=== PATIENT | female | born 1950 | race Caucasian/White ===

== ENCOUNTER 2016-11-18 21:15 | Inpatient (IN) | payer OTHER ==
[~2016-11-18] VITALS: Ht 160 cm; Wt 71.9 kg
[~2016-11-18 21:15] MED LIST: CALC500C70 PO; MILK1CAP9 PO; PRLSR20 PO; ZNTT/150 PO
[2016-11-18] MEDS ORDERED: AZITHROMYCIN 250 MG TAB PO ONE (22:00)
[2016-11-18] MEDS ORDERED: HYCODAN 60ML BOTTLE HOMEPACK PO ONE (22:00)
[2016-11-18] MEDS ORDERED: OXYCODONE IR HOME PACK PO ONE (22:00)
[2016-11-18] MEDS ORDERED: ONDANSETRON INJ 2 MG/ML 2 ML VIAL IV STA (22:14)
[2016-11-18] MEDS ORDERED: SODIUM CHLORIDE 0.9% 500ML 500 ML IV STA (22:14)
[2016-11-18] MEDS ORDERED: MoRPHine SULFATE 10 MG/ML CARP/VIAL IV STA (22:14)
[2016-11-18 22:28] LABS: BASO % 0.2 %; BASO ABS # 0.03 K/uL (0-0.2); COMPLETE YES; EOS % 0.7 %; HEMATOCRIT 42.7 % (37-47); IG% 0.3 %; LYMPH % 10.8 %; LYMPH ABS # 1.69 K/uL (1.2-3.4); MEAN CORPUSCULAR HEMOGLOBIN 30.1 pg (25-34); MEAN CORPUSCULAR HGB CONC 34.7 g/dl (32-36); MEAN PLATELET VOLUME 10.8 fL (7.4-10.4); MONO % 7.5 %; NEUT % 80.5 %; PLATELET COUNT 269 K/uL (130-400); RED BLOOD COUNT 4.91 M/uL (4.2-5.4)
--- NOTE | 2016-11-18 22:29 | DIAGNOSTIC IMAGING REPORT ---
CHEST ONE VIEW PORTABLE CLINICAL HISTORY: epigastric pain COMPARISON STUDY: No previous studies for comparison. FINDINGS: The heart is borderline enlarged. There is elevation of the interstitium. Clinical correlation in regards to congestive failure is recommended. There is no lobar consolidation. There are no significant pleural effusions.[ IMPRESSION: Elevation of the interstitium. Clinical correlation in regards to congestive failure is recommended. There is no lobar consolidation. Electronically signed by: Jason Cardona M.D. 11/18/2016 10:27 PM Dictated Date/Time: 11/18/2016 10:26 PM
[2016-11-18] MEDS ORDERED: OPTIRAY 320 IV PRN (22:30)
[2016-11-18 22:35] LABS: CREATININE 0.71 mg/dl (0.60-1.20); POTASSIUM 3.5 mmol/L (3.5-5.1)
--- NOTE | 2016-11-18 23:32 | EMERGENCY ROOM VISIT NOTE ---
ED Visit Note First contact with patient: 22:06 This Patient was discussed with the physician Administrative Staff Supervisor, Asha Dent PA-C. The pertinent historical and physical exam findings were confirmed. I agree with the studies ordered and with the interpretations of these studies. I agree with the disposition and care plan.
[2016-11-18] MEDS ORDERED: PIPERACILLIN/TAZOBACTAM 3.375 GM/100ML D5W IV STA (23:46)
[2016-11-19] VITALS (9 sets, daily range): BP systolic 97–185; BP diastolic 57–87; PULSE 58–74; TEMP 36.5–37.2; O2SAT 92–93; Ht 160 cm; Wt 71.9 kg
--- NOTE | 2016-11-19 00:13 | History and Physical ---
History & Physical Date & Time of Service: Nov 19, 2016 at 00:05 Chief Complaint: Chest Pain Primary Care Physician: Rosalina Chino M.D. History of Present Illness Source: patient pt is a 66 year old female who presents to Er for 1 day history of epigastric pain, some nausea, no vomiting, pt denies fever, no diarrhea, pt had EGD and colonoscopy done 2 months ago, which showed diverticulosis and hiatal hernia, Social History Smoking Status: Current Every Day Smoker Alcohol Use: occasionally Drug Use: none Multi-Drug Resistant Organisms History of MDRO: No Allergies Coded Allergies: Codeine (Verified Allergy, Unknown, SICK TO STOMACH, 09/02/16) Home Medications Scheduled Calcium/Vitamin D (Os-He 500 Plus D), 1 TAB PO QAM Milk Thistle (Silybum Marianum (Milk Thistle), 2 CAP PO QAM Omeprazole (Prilosec), 2 TAB PO QAM Ranitidine (Zantac), 150 MG PO BID Review of Systems Constitutional: No chills, No fatigue, No fever, No problem reported, No sweats , No weakness, No weight loss Eyes: No diplopia, No discharge, No eye pain, No problem reported, No redness, No worsening of vision ENT: No dental problems, No hearing loss, No nasal symptoms, No problem reported, No sore throat, No tinnitus, No trouble swallowing, No unusual epistaxis Respiratory: No cough, No dyspnea at rest, No dyspnea on exertion, No hemoptysis, No problem reported, No shortness of breath, No sputum, No wheezing Cardiovascular: No PND, No chest pain, No claudication, No edema, No orthopnea , No palpitations, No problem reported Abdomen: + nausea, + pain Musculoskeletal: No calf pain, No joint pain, No muscle pain, No problem reported, No swelling Neurologic: No balance problems, No memory loss, No numbness/tingling, No paralysis, No problem reported, No vertigo, No weakness Psychiatric: No anhedonism, No anxiety, No depression symptoms, No insomnia, No problem reported, No substance abuse Endocrine: No excessive thirst, No excessive urination, No fatigue, No problem reported Hematologic / Lymphatic: No abnormal bleeding/bruising, No clotting problems, No night sweats, No problem reported, No swollen lymph nodes Physical Exam Vital Signs Date Time Temp Pulse Resp B/P Pulse Ox O2 Delivery O2 Flow Rate FiO2 11/18/16 22:51 81 18 162/89 11/18/16 22:24 Room Air 11/18/16 21:42 36.7 63 18 183/84 95 Room Air 11/18/16 21:32 66 General Appearance: WD/WN Head: normocephalic Eyes: normal inspection ENT: normal ENT inspection Neck: supple, no JVD Respiratory/Chest: chest non-tender, lungs clear, normal breath sounds Cardiovascular: regular rate, rhythm, no edema, no gallop, no JVD Abdomen/GI: normal bowel sounds, soft, + tenderness (tenderness at RUQ , no rebound pain, ) Extremities/Musculoskelatal: normal inspection, no calf tenderness Diagnostics Laboratory Results Results Past 24 Hours Test 11/18/16 21:30 11/18/16 22:25 Range/Units White Blood Count 15.70 4.8-10.8 K/uL Red Blood Count 4.91 4.2-5.4 M/uL Hemoglobin 14.8 12.0-16.0 g/dL Hematocrit 42.7 37-47 % Mean Corpuscular Volume 87.0 80-100 fL Mean Corpuscular Hemoglobin 30.1 25-34 pg Mean Corpuscular Hemoglobin Concent 34.7 32-36 g/dl Platelet Count 269 130-400 K/uL Mean Platelet Volume 10.8 7.4-10.4 fL Neutrophils (%) (Auto) 80.5 % Lymphocytes (%) (Auto) 10.8 % Monocytes (%) (Auto) 7.5 % Eosinophils (%) (Auto) 0.7 % Basophils (%) (Auto) 0.2 % Neutrophils # (Auto) 12.66 1.4-6.5 K/uL Lymphocytes # (Auto) 1.69 1.2-3.4 K/uL Monocytes # (Auto) 1.17 0.11-0.59 K/uL Eosinophils # (Auto) 0.11 0-0.5 K/uL Basophils # (Auto) 0.03 0-0.2 K/uL RDW Standard Deviation 43.3 36.4-46.3 fL RDW Coefficient of Variation 13.6 11.5-14.5 % Immature Granulocyte % (Auto) 0.3 % Immature Granulocyte # (Auto) 0.04 0.00-0.02 K/uL Sodium Level 139 136-145 mmol/L Potassium Level 3.5 3.5-5.1 mmol/L Chloride Level 105 98-107 mmol/L Carbon Dioxide Level 22 21-32 mmol/L Anion Gap 12.0 3-11 mmol/L Blood Urea Nitrogen 12 7-18 mg/dl Creatinine 0.71 0.60-1.20 mg/dl Est Creatinine Clear Calc Drug Dose 72.1 ml/min Estimated GFR () 101.4 Estimated GFR (Non- 87.5 BUN/Creatinine Ratio 17.0 10-20 Random Glucose 94 70-99 mg/dl Calcium Level 10.0 8.5-10.1 mg/dl Total Bilirubin 0.4 0.2-1 mg/dl Aspartate Amino Transf (AST/SGOT) 23 15-37 U/L Alanine Aminotransferase (ALT/SGPT) 34 12-78 U/L Alkaline Phosphatase 111 45-117 U/L Pro-B-Type Natriuretic Peptide 111 0-900 pg/ml Total Protein 7.8 6.4-8.2 gm/dl Albumin 3.9 3.4-5.0 gm/dl Globulin 3.9 2.5-4.0 gm/dl Albumin/Globulin Ratio 1.0 0.9-2 Lipase 145 73-393 U/L Bedside Troponin I 0.000 0-0.045 ng/ml Diagnostic Radiology CT scan- gallstone and cholecystitis Impression Assessment and Plan IMP Acute cholecystitis, cholelithiasis Plan: admit to hospital. IV fluid antibiotic, control pain, U/S study gallbladder possible to do laparoscopic cholecystectomy, possible open or cholangiogram in 2 days, D/W benefits, risks, and alternatives of the procedure, the risks- infection, bleeding, injury CBD, bowel, HI, DVT, stroke, , pt understood, she agrees with the plan. I answered all questions, ASA Classification: ASA Class II Level of Care Med/Surg VTE Prophylaxis Given or contraindicated: SCD's
[2016-11-19] MEDS ORDERED: B-CO1CAP17 PO (00:14)
[2016-11-19] MEDS ORDERED: MoRPHine SULFATE 4 MG/ML 1 ML CARP\\VIAL IV STA (00:29)
--- NOTE | 2016-11-19 01:40 | EMERGENCY ROOM VISIT NOTE ---
History First contact with patient: 22:06 Chief Complaint: CHEST PAIN Stated Complaint: CHEST PAIN Nursing Triage Summary: Pt presents als for evaluation of chest pain/abdominal pain. Hx of diverticulitis/gerd. Off and on abdominal pain 3 days, increasing tonight. C/o nausea. History of Present Illness The patient is a 66 year old female who presents to the Emergency Room via ALS with complaints of abdominal pain which has been intermittent for the past 3 days but worsened in severity tonight. The patient reports that she has had a long history of intermittent abdominal pain and takes omeprazole and ranitidine at home for presumed GERD. She states that she had an EGD and colonoscopy 3 months ago which showed a hiatal hernia and diverticulosis. The patient reports that her symptoms seemed to be under control until approximately 3 days ago. She states that that time, she developed severe pain in her upper abdomen associated with nausea and decreased appetite. She took milk of magnesia and had several bowel movements and felt slightly better. She states she has had a few episodes of pain in the past 3 days. The patient reports that approximately 5 hours ago, the pain increased in severity and became constant. She reports abdominal bloating and epigastric pain. The pain radiates into her back. She rates her current discomfort a 7/10. The patient reports she is otherwise healthy. She denies any history of pancreatitis. She denies history of abdominal surgery. She denies chest pain, shortness of breath, changes in bowel movements, fevers or urinary symptoms. Review of Systems A complete 10-point Review of Systems was discussed with the patient, with pertinent positives and negatives listed in the History of Present Illness. All remaining Review of Systems questions can be considered negative unless otherwise specified. Past Medical/Surgical History Medical Problems: (1) Acute cholecystitis Social History Smoking Status: Current Every Day Smoker Drug Use: none Current/Historical Medications Scheduled Calcium/Vitamin D (Os-Eh 500 Plus D), 1 TAB PO QAM Milk Thistle (Silybum Marianum (Milk Thistle), 2 CAP PO QAM Omeprazole (Prilosec), 2 TAB PO QAM Ranitidine (Zantac), 150 MG PO BID Vitamin B Cmplx/Vitc/Folic Ac (Nephrocaps), 1 CAP PO DAILY Allergies Coded Allergies: Codeine (Verified Allergy, Unknown, SICK TO STOMACH, 11/19/16) Physical Exam Vital Signs Date Time Temp Pulse Resp B/P Pulse Ox O2 Delivery O2 Flow Rate FiO2 11/18/16 22:51 81 18 162/89 11/18/16 22:24 Room Air 11/18/16 21:42 36.7 63 18 183/84 95 Room Air 11/18/16 21:32 66 Physical Exam VITALS: Vitals are noted on the nurse's note and reviewed by myself. Vital signs stable. GENERAL: This is a 66-year-old female, in no acute distress, nondiaphoretic, well-developed well-nourished. SKIN: Capillary reflex less than 2 seconds. HEART: Regular rate and rhythm without murmurs gallops or rubs. LUNGS: Clear to auscultation bilaterally without wheezes, rales or rhonchi. ABDOMEN: Positive bowel sounds x 4. Soft, moderate tenderness over the epigastric region and right upper quadrant. Salcedo sign positive. No guarding or rebound tenderness. NEURO: Patient was alert and oriented to person place and time. Medical Decision & Procedures ER Provider Diagnostic Interpretation: CHEST ONE VIEW PORTABLE FINDINGS: The heart is borderline enlarged. There is elevation of the interstitium. Clinical correlation in regards to congestive failure is recommended. There is no lobar consolidation. There are no significant pleural effusions.[ IMPRESSION: Elevation of the interstitium. Clinical correlation in regards to congestive failure is recommended. There is no lobar consolidation. CT ABDOMEN & PELVIS: Gallbladder wall thickening and edema. Query small stone in the neck of the gallbladder or cystic duct. Findings suggest cholecystitis. Ultrasound/HIDA scan can further assess. Biliary ectasia. Colonic diverticula without diverticulitis. No evidence of appendicitis. Hysterectomy. Too small to characterize low attenuation focus in the right kidney. Cardiac medically. Basilar atelectasis/pneumonitis. Radiologist: Serenity Ramirez M.D. Laboratory Results 11/18/16 21:30 Red Blood Count 4.91, Mean Corpuscular Volume 87.0, Mean Corpuscular Hemoglobin 30.1, Mean Corpuscular Hemoglobin Concent 34.7, Mean Platelet Volume 10.8, Neutrophils (%) (Auto) 80.5, Lymphocytes (%) (Auto) 10.8, Monocytes (%) (Auto) 7.5, Eosinophils (%) (Auto) 0.7, Basophils (%) (Auto) 0.2, Neutrophils # (Auto) 12.66, Lymphocytes # (Auto) 1.69, Monocytes # (Auto) 1.17, Eosinophils # (Auto) 0.11, Basophils # (Auto) 0.03 11/18/16 21:30 Test 11/18/16 21:30 11/18/16 22:25 White Blood Count 15.70 K/uL (4.8-10.8) Red Blood Count 4.91 M/uL (4.2-5.4) Hemoglobin 14.8 g/dL (12.0-16.0) Hematocrit 42.7 % (37-47) Mean Corpuscular Volume 87.0 fL (80-100) Mean Corpuscular Hemoglobin 30.1 pg (25-34) Mean Corpuscular Hemoglobin Concent 34.7 g/dl (32-36) Platelet Count 269 K/uL (130-400) Mean Platelet Volume 10.8 fL (7.4-10.4) Neutrophils (%) (Auto) 80.5 % Lymphocytes (%) (Auto) 10.8 % Monocytes (%) (Auto) 7.5 % Eosinophils (%) (Auto) 0.7 % Basophils (%) (Auto) 0.2 % Neutrophils # (Auto) 12.66 K/uL (1.4-6.5) Lymphocytes # (Auto) 1.69 K/uL (1.2-3.4) Monocytes # (Auto) 1.17 K/uL (0.11-0.59) Eosinophils # (Auto) 0.11 K/uL (0-0.5) Basophils # (Auto) 0.03 K/uL (0-0.2) RDW Standard Deviation 43.3 fL (36.4-46.3) RDW Coefficient of Variation 13.6 % (11.5-14.5) Immature Granulocyte % (Auto) 0.3 % Immature Granulocyte # (Auto) 0.04 K/uL (0.00-0.02) Anion Gap 12.0 mmol/L (3-11) Est Creatinine Clear Calc Drug Dose 72.1 ml/min Estimated GFR () 101.4 Estimated GFR (Non- 87.5 BUN/Creatinine Ratio 17.0 (10-20) Calcium Level 10.0 mg/dl (8.5-10.1) Total Bilirubin 0.4 mg/dl (0.2-1) Aspartate Amino Transf (AST/SGOT) 23 U/L (15-37) Alanine Aminotransferase (ALT/SGPT) 34 U/L (12-78) Alkaline Phosphatase 111 U/L (45-117) Pro-B-Type Natriuretic Peptide 111 pg/ml (0-900) Total Protein 7.8 gm/dl (6.4-8.2) Albumin 3.9 gm/dl (3.4-5.0) Globulin 3.9 gm/dl (2.5-4.0) Albumin/Globulin Ratio 1.0 (0.9-2) Lipase 145 U/L (73-393) Bedside Troponin I 0.000 ng/ml (0-0.045) Medications Administered Medications (Trade) Dose Ordered Sig/Geri Route Start Time Stop Time Status Last Admin Dose Admin Sodium Chloride (Nss 500ml) 500 ml @ 999 mls/hr Q31M STAT IV 11/18/16 22:14 11/18/16 22:44 DC 11/18/16 22:14 999 MLS/HR Ondansetron HCl (Zofran Inj) 4 mg NOW STAT IV 11/18/16 22:14 11/18/16 22:17 DC 11/18/16 22:25 4 MG Morphine Sulfate (MoRPHine SULFATE INJ) 6 mg NOW STAT IV 11/18/16 22:14 11/18/16 22:17 DC 11/18/16 22:26 6 MG Piperacillin Sod/ Tazobactam Sod (Zosyn Iv) 3.375 gm NOW STAT IV 11/18/16 23:46 11/18/16 23:47 DC 11/19/16 00:02 3.375 GM ECG Indication: abdominal pain Rate (beats per minute): 70 Rhythm: normal sinus Findings: no acute ischemic change, no ectopy, other (LVH) Medical Decision Differential diagnosis includes cholecystitis, appendicitis, perforated viscus, gastroenteritis, colitis, diverticulitis, among others. The patient was evaluated as above. Labs were drawn and IV access was obtained. Imaging studies were performed and read by radiology as above. The patient was medicated with a bolus of normal saline solution, 6 mg morphine IV, and 4 mg Zofran IV. The patient was reassessed multiple times during their stay in the emergency department and remained in stable condition. The patient is a 66-year-old female who presents today complaining of epigastric abdominal pain and nausea. Labs revealed leukocytosis of 15,000. Bilirubin and LFTs were not elevated. There were no concerning electrolyte abnormalities. Troponin was not elevated. CT of the abdomen and pelvis was performed and did show evidence of acute cholecystitis. I spoke with the surgeon, Dr. Ortiz, who agreed to evaluate the patient. Please see his note for patient disposition. The patient was independently evaluated by Dr. Vargas, ED attending physician, who agreed with my assessment and treatment plan. Impression Primary Impression: Acute cholecystitis Departure Information Dispostion Home / Self-Care Forms HOME CARE DOCUMENTATION FORM, School Instructions, Work Instructions, IMPORTANT VISIT INFORMATION Patient Instructions My [facility]
[2016-11-19] MEDS ORDERED: NURSING VERBAL MED ORDER ONE ×3 (03:15→15:30)
[2016-11-19] MEDS: HYDROmorphone INJ 1 MG/ML SYR IV PRN ×3 (03:23→10:27)
[2016-11-19] MEDS: D5W AND 1/2NSS + 20MEQ KCL 1,000 ML IV SCH ×3 (03:27→22:07)
[2016-11-19] MEDS ORDERED: PIPERACILL/TAZOBAC CONSULT ACTIVE PRN (03:30)
[2016-11-19] MEDS: PIPERACILL/TAZOBAC IV 3.375 GM in DEXTROSE 5% 100ML 100 ML IV SCH ×3 (05:48→21:32)
[2016-11-19 06:03] LABS: BASO % 0.1 %; BASO ABS # 0.02 K/uL (0-0.2); COMPLETE YES; EOS % 0.2 %; HEMATOCRIT 41.5 % (37-47); IG% 0.3 %; LYMPH % 6.6 %; LYMPH ABS # 1.02 K/uL (1.2-3.4); MEAN CELL VOLUME 87.9 fL (80-100); MEAN CORPUSCULAR HEMOGLOBIN 30.3 pg (25-34); MEAN CORPUSCULAR HGB CONC 34.5 g/dl (32-36); MEAN PLATELET VOLUME 10.3 fL (7.4-10.4); MONO % 7.3 %; NEUT % 85.5 %; PLATELET COUNT 223 K/uL (130-400); RED BLOOD COUNT 4.72 M/uL (4.2-5.4); WHITE BLOOD COUNT 15.48 K/uL (4.8-10.8)
--- NOTE | 2016-11-19 06:16 | DIAGNOSTIC IMAGING REPORT ---
ABDOMEN AND PELVIS CT WITH IV CONTRAST CT DOSE: 504.70 mGy.cm HISTORY: Pain. Nausea. epigastric/ RUQ pain TECHNIQUE: Multiaxial CT images of the abdomen and pelvis were performed following the use of intravenous contrast. COMPARISON STUDY: None. FINDINGS: Mild bibasilar atelectasis. Liver spleen and pancreas are unremarkable. Moderate gallbladder wall edematous change. Possible gallstones in the region of the gallbladder neck area kidneys negative for necrosis. Bowel pattern is nonobstructive. Bladder is midline. There is no free fluid within the pelvic cul-de-sac. IMPRESSION: 1. Gallbladder wall edema with a potential gallstone the region of the gallbladder neck. 2. Mild bibasilar atelectatic change. Electronically signed by: Armin Segura M.D. 11/19/2016 6:15 AM Dictated Date/Time: 11/19/2016 6:09 AM
[2016-11-19 06:36] LABS: BUN/CREATININE RATIO 12.4 (10-20); CALCIUM 8.7 mg/dl (8.5-10.1); CREATININE 0.63 mg/dl (0.60-1.20); POTASSIUM 3.9 mmol/L (3.5-5.1)
[2016-11-19 06:39] LABS: ALB/GLOB RATIO 0.9 (0.9-2)
[2016-11-19] MEDS: ONDANSETRON INJ 2 MG/ML 2 ML VIAL IV PRN ×2 (07:16→14:47)
--- NOTE | 2016-11-19 07:41 | DIAGNOSTIC IMAGING REPORT ---
ULTRASOUND RIGHT UPPER QUADRANT ABDOMEN CLINICAL HISTORY: Right upper quadrant abdominal pain. COMPARISON STUDY: Abdominal CT dated 11/18/2016. TECHNIQUE: Real-time, grayscale, and color flow sonography of the right upper quadrant of the abdomen was performed. Images are reviewed in the transverse and longitudinal planes. FINDINGS: Liver: The liver is normal in size and echotexture. There is mild central intrahepatic biliary ductal dilatation. The main portal vein is patent. Gallbladder: The gallbladder is distended measuring up to 10 cm in length. There are numerous shadowing calcified gallstones. The gallbladder wall appears thickened and heterogeneous measuring up to 7 mm. There is pericholecystic fluid. A sonographic Salcedo's sign is reportedly present. Echogenic foci with Ring down artifact are noted and suggest gas or possibly adenomyomatosis. Gas was not corroborated on the CT scan. The common bile duct measures up to 0.7 cm in diameter. Pancreas: Visualized portions of the pancreatic head and body are normal in appearance. The splenic vein is patent. Right kidney: Survey images of the right kidney demonstrate mild cortical atrophy. There is no hydronephrosis. Ascites: None. IMPRESSION: 1. Cholelithiasis with evidence of acute cholecystitis, possibly emphysematous. 2. There is pericholecystic fluid. 3. The common bile duct is top normal in caliber measuring up to 7 mm. There is also mild intrahepatic biliary ductal dilatation. A common duct stone is not excluded. Electronically signed by: Hunter Carias M.D. 11/19/2016 7:40 AM Dictated Date/Time: 11/19/2016 7:37 AM
[2016-11-19] MEDS: METOPROLOL TARTRATE 25 MG TAB PO SCH ×2 (10:18→21:28)
--- NOTE | 2016-11-19 10:44 | Surgery Progress Note ---
Surgery Progress Note Date of Service Nov 19, 2016. Subjective + feeling well pt is doing better, less abdominal pain, no N/V. Objective Vital Signs: Date Time Temp Pulse Resp B/P Pulse Ox O2 Delivery O2 Flow Rate FiO2 11/19/16 10:16 68 132/69 11/19/16 07:10 Room Air 11/19/16 07:08 36.7 67 17 180/78 92 Room Air 171/80 11/19/16 01:30 74 164/72 11/19/16 01:20 Room Air 11/19/16 01:20 Room Air 11/19/16 01:05 36.5 74 15 185/87 93 Room Air 11/19/16 00:55 36.7 68 18 150/82 98 11/19/16 00:49 68 18 150/82 98 Room Air 11/18/16 22:51 81 18 162/89 11/18/16 22:24 Room Air 11/18/16 21:42 36.7 63 18 183/84 95 Room Air 11/18/16 21:32 66 General Appearance: WD/WN Head: normocephalic Neck: supple Respiratory/Chest: chest non-tender, lungs clear Cardiovascular: regular rate, rhythm, no edema, no gallop, no JVD Abdomen: normal bowel sounds, non distended, soft, + tenderness Extremities: normal range of motion, non-tender, normal inspection Laboratory Results: Results Past 24 Hours Test 11/18/16 21:30 11/18/16 22:25 11/19/16 05:23 Range/Units White Blood Count 15.70 15.48 4.8-10.8 K/uL Red Blood Count 4.91 4.72 4.2-5.4 M/uL Hemoglobin 14.8 14.3 12.0-16.0 g/dL Hematocrit 42.7 41.5 37-47 % Mean Corpuscular Volume 87.0 87.9 80-100 fL Mean Corpuscular Hemoglobin 30.1 30.3 25-34 pg Mean Corpuscular Hemoglobin Concent 34.7 34.5 32-36 g/dl Platelet Count 269 223 130-400 K/uL Mean Platelet Volume 10.8 10.3 7.4-10.4 fL Neutrophils (%) (Auto) 80.5 85.5 % Lymphocytes (%) (Auto) 10.8 6.6 % Monocytes (%) (Auto) 7.5 7.3 % Eosinophils (%) (Auto) 0.7 0.2 % Basophils (%) (Auto) 0.2 0.1 % Neutrophils # (Auto) 12.66 13.24 1.4-6.5 K/uL Lymphocytes # (Auto) 1.69 1.02 1.2-3.4 K/uL Monocytes # (Auto) 1.17 1.13 0.11-0.59 K/uL Eosinophils # (Auto) 0.11 0.03 0-0.5 K/uL Basophils # (Auto) 0.03 0.02 0-0.2 K/uL RDW Standard Deviation 43.3 43.1 36.4-46.3 fL RDW Coefficient of Variation 13.6 13.3 11.5-14.5 % Immature Granulocyte % (Auto) 0.3 0.3 % Immature Granulocyte # (Auto) 0.04 0.04 0.00-0.02 K/uL Sodium Level 139 136 136-145 mmol/L Potassium Level 3.5 3.9 3.5-5.1 mmol/L Chloride Level 105 104 98-107 mmol/L Carbon Dioxide Level 22 25 21-32 mmol/L Anion Gap 12.0 7.0 3-11 mmol/L Blood Urea Nitrogen 12 8 7-18 mg/dl Creatinine 0.71 0.63 0.60-1.20 mg/dl Est Creatinine Clear Calc Drug Dose 72.1 81.2 ml/min Estimated GFR () 101.4 106.8 Estimated GFR (Non- 87.5 92.2 BUN/Creatinine Ratio 17.0 12.4 10-20 Random Glucose 94 132 70-99 mg/dl Calcium Level 10.0 8.7 8.5-10.1 mg/dl Total Bilirubin 0.4 0.6 0.2-1 mg/dl Aspartate Amino Transf (AST/SGOT) 23 24 15-37 U/L Alanine Aminotransferase (ALT/SGPT) 34 36 12-78 U/L Alkaline Phosphatase 111 100 45-117 U/L Pro-B-Type Natriuretic Peptide 111 0-900 pg/ml Total Protein 7.8 7.0 6.4-8.2 gm/dl Albumin 3.9 3.4 3.4-5.0 gm/dl Globulin 3.9 3.6 2.5-4.0 gm/dl Albumin/Globulin Ratio 1.0 0.9 0.9-2 Lipase 145 73-393 U/L Bedside Troponin I 0.000 0-0.045 ng/ml Assessment & Plan IMP acute cholecystitis, pt will have laparoscopic cholecystectomy, possible open or cholangiogram, d/W benefits, risks and alternatives of the procedure, the risks- infection, bleeding, injury CBD, bowel DVT, [place] , stroke, incisional hernia, pt understood, she agrees with the plan, I answered all questions,
--- NOTE | 2016-11-19 11:49 | Anesthesiology Progress Note ---
Anesthesia Progress Note Date of Service Nov 19, 2016. Progress Notes This is a 66 y/o w female presenting w/ acute cholecystitis for a cholecystectomy.PMHx is sig. for Hepatitis C,GERD,diverticulitis,probably newly diagnosed HTN,Hiatal hernia and active tobacco smoking. Discussed anesthesia w/ pt , risks vs benefits all questions answered. Informed consent obtained.
[2016-11-19] MEDS ORDERED: IBUPROFEN 600 MG TAB PO PRN (15:30)
[2016-11-19] MEDS: IBUPROFEN 600 MG TAB PO PRN (19:56)
[2016-11-20] VITALS (10 sets, daily range): BP systolic 109–148; BP diastolic 62–87; PULSE 64–78; TEMP 36.6–37.2; O2SAT 94–96
[2016-11-20] MEDS: PIPERACILL/TAZOBAC IV 3.375 GM in DEXTROSE 5% 100ML 100 ML IV SCH ×3 (05:53→22:07)
[2016-11-20] MEDS: D5W AND 1/2NSS + 20MEQ KCL 1,000 ML IV SCH ×2 (09:02→19:07)
[2016-11-20] MEDS: METOPROLOL TARTRATE 25 MG TAB PO SCH ×2 (09:12→20:32)
[2016-11-20 10:24] LABS: BASO % 0.2 %; BASO ABS # 0.02 K/uL (0-0.2); EOS % 0.6 %; HEMATOCRIT 40.4 % (37-47); IG% 0.2 %; LYMPH % 12.5 %; LYMPH ABS # 1.44 K/uL (1.2-3.4); MEAN CELL VOLUME 87.1 fL (80-100); MEAN CORPUSCULAR HEMOGLOBIN 29.5 pg (25-34); MONO % 10.9 %; NEUT % 75.6 %; PLATELET COUNT 208 K/uL (130-400); RED BLOOD COUNT 4.64 M/uL (4.2-5.4); WHITE BLOOD COUNT 11.51 K/uL (4.8-10.8)
[2016-11-20 10:44] LABS: ALB/GLOB RATIO 0.8 (0.9-2); BUN/CREATININE RATIO 7.1 (10-20); CALCIUM 8.9 mg/dl (8.5-10.1); COMPLETE YES; CREATININE 0.62 mg/dl (0.60-1.20); MEAN CORPUSCULAR HGB CONC 33.9 g/dl (32-36); POTASSIUM 3.9 mmol/L (3.5-5.1)
--- NOTE | 2016-11-20 10:46 | Surgery Progress Note ---
Surgery Progress Note Date of Service Nov 20, 2016. Subjective + feeling well pt is doing better, no N/V, no fever, laee abdominal pain, Objective Vital Signs: Date Time Temp Pulse Resp B/P Pulse Ox O2 Delivery O2 Flow Rate FiO2 11/20/16 07:57 95 Room Air 11/20/16 07:28 Room Air 11/20/16 07:24 37.2 70 17 123/82 95 Room Air 11/19/16 23:40 Room Air 11/19/16 22:56 37.2 66 14 97/57 93 Room Air 11/19/16 21:25 62 119/72 11/19/16 16:15 92 Room Air 11/19/16 15:12 37.0 63 16 107/58 92 Room Air 11/19/16 13:37 58 108/59 General Appearance: WD/WN Head: normocephalic Neck: supple Respiratory/Chest: chest non-tender, lungs clear Cardiovascular: regular rate, rhythm, no edema, no gallop, no JVD Abdomen: normal bowel sounds, non tender, non distended, soft, + tenderness Laboratory Results: Results Past 24 Hours Test 11/20/16 10:15 Range/Units White Blood Count 11.51 4.8-10.8 K/uL Red Blood Count 4.64 4.2-5.4 M/uL Hemoglobin 13.7 12.0-16.0 g/dL Hematocrit 40.4 37-47 % Mean Corpuscular Volume 87.1 80-100 fL Mean Corpuscular Hemoglobin 29.5 25-34 pg Platelet Count 208 130-400 K/uL Mean Platelet Volume 10.0 7.4-10.4 fL Neutrophils (%) (Auto) 75.6 % Lymphocytes (%) (Auto) 12.5 % Monocytes (%) (Auto) 10.9 % Eosinophils (%) (Auto) 0.6 % Basophils (%) (Auto) 0.2 % Neutrophils # (Auto) 8.71 1.4-6.5 K/uL Lymphocytes # (Auto) 1.44 1.2-3.4 K/uL Monocytes # (Auto) 1.25 0.11-0.59 K/uL Eosinophils # (Auto) 0.07 0-0.5 K/uL Basophils # (Auto) 0.02 0-0.2 K/uL RDW Standard Deviation 43.6 36.4-46.3 fL RDW Coefficient of Variation 13.7 11.5-14.5 % Immature Granulocyte % (Auto) 0.2 % Immature Granulocyte # (Auto) 0.02 0.00-0.02 K/uL Diagnostic Interpretation: U/S study IMPRESSION: 1. Cholelithiasis with evidence of acute cholecystitis, possibly emphysematous. 2. There is pericholecystic fluid. 3. The common bile duct is top normal in caliber measuring up to 7 mm. There is also mild intrahepatic biliary ductal dilatation. A common duct stone is not excluded.- Assessment & Plan IMP acute cholecystitis, cholelithiasis pt will have laparoscopic cholecystectomy today, possible open or cholangiogram , d/W benefits, risks and alternatives of the procedure, the risks- infection, bleeding, injury CBD, bowel DVT, RI , stroke, incisional hernia, possible subtotal cholecystectomy, pt understood, she agrees with the plan, I answered all questions, CBC, CMP, Lipase IMP acute cholecystitis, pt will have laparoscopic cholecystectomy, possible open or cholangiogram, d/W benefits, risks and alternatives of the procedure, the risks- infection, bleeding, injury CBD, bowel DVT, RI , stroke, incisional hernia, pt understood, she agrees with the plan, I answered all questions,
[2016-11-20] MEDS ORDERED: DEXAMETHASONE SOD INJ 4 MG/ML VIAL ONE (11:31)
[2016-11-20] MEDS ORDERED: PROPOFOL IV EMULSION 10 MG/ML 20 ML VIAL IV ONE (11:31)
[2016-11-20] MEDS ORDERED: GLYCOPYRROLATE INJ 0.2 MG/ML VIAL ONE (11:31)
[2016-11-20] MEDS ORDERED: ROCURONIUM BROMIDE 10 MG/ML 5 ML VIAL ONE ×2 (11:31→13:36)
[2016-11-20] MEDS ORDERED: NEOSTIGMINE METHYLSULFATE 5 MG/5 ML SYR ONE (11:31)
[2016-11-20] MEDS ORDERED: ONDANSETRON INJ 2 MG/ML 2 ML VIAL ONE (11:31)
[2016-11-20] MEDS ORDERED: LIDOCAINE HCL 2% 2 ML VIAL (20MG/ML) ONE (11:31)
[2016-11-20] MEDS ORDERED: FENTANYL CITRATE INJ 50 MCG/1 ML 2 ML VIAL ONE ×2 (11:32→13:36)
[2016-11-20] MEDS ORDERED: MIDAZOLAM HCL 1 MG/ML 2ML VIAL ONE (11:32)
--- NOTE | 2016-11-20 11:40 | History & Physical Bridge Note ---
H&P Re-Evaluation Bridge Note: I have examined the patient, reviewed the History & Physical and in the interval since the performance of the History & Physical I have noted the following changes of clinical significance: No changes noted
[2016-11-20] MEDS ORDERED: ONDANSETRON INJ 2 MG/ML 2 ML VIAL IV PRN (12:30)
[2016-11-20] MEDS ORDERED: FENTANYL CITRATE INJ 50 MCG/1 ML 2 ML VIAL IV PRN (12:30)
[2016-11-20] MEDS ORDERED: EpHEDrine SULFATE INJ 50 MG/ML AMP IV PRN (12:30)
[2016-11-20] MEDS ORDERED: ATROPINE SULFATE 0.1 MG/ML 5ML SYR IV PRN (12:30)
[2016-11-20] MEDS ORDERED: MIX: LIDOCAINE 1% + MARCAINE 0.5% (50:50) INJ ONE (14:08)
[2016-11-20] MEDS ORDERED: BACITRACIN ZINC OINT TOP ONE (14:32)
--- NOTE | 2016-11-20 14:49 | [facility] Post Operative Brief Note ---
Immediate Operative Summary Operative Date Nov 20, 2016. Pre-Operative Diagnosis Acute Cholecystitis, Cholelithiasis Post-Operative Diagnosis Acute Cholecystitis, Cholelithiasis and Gangrenous Gallbladder Procedure(s) Performed Laparoscopic Cholecystectomy Surgeon Dr. Richa Ortiz Vegetable Washer Surgeon(s) Verna Jang PA-C Estimated Blood Loss 30ml Findings acute cholecystitis, gangeous gallbladder, cholelithiasis Fluids (cc crystalloids) 1600ml Specimens A: Gallbladder and contents Drains BEATRIZ X 1 Anesthesia General Complication(s) None Disposition Recovery Room / PACU
--- NOTE | 2016-11-20 15:07 | Anesthesiology Progress Note ---
Anesthesia Post Op Note Date & Time Nov 20, 2016 at 15:07 Vital Signs Pain Intensity: 0 Vital Signs Past 12 Hours Date Time Temp Pulse Resp B/P Pulse Ox O2 Delivery O2 Flow Rate FiO2 11/20/16 15:03 107/55 11/20/16 15:01 58 13 94 11/20/16 15:01 57 13 11/20/16 14:58 90/41 11/20/16 14:56 58 12 92 11/20/16 14:56 58 12 11/20/16 14:53 98/49 11/20/16 14:51 55 15 11/20/16 14:51 55 15 90 11/20/16 14:49 103/51 11/20/16 14:48 103/51 11/20/16 14:46 65 18 97 11/20/16 14:46 65 18 11/20/16 14:46 36.3 58 14 98/48 97 Nasal Cannula 2 11/20/16 07:57 95 Room Air 11/20/16 07:28 Room Air 11/20/16 07:24 37.2 70 17 123/82 95 Room Air Notes Mental Status: alert / awake / arousable, participated in evaluation Pt Amnestic to Procedure: Yes Nausea / Vomiting: adequately controlled Pain: adequately controlled Airway Patency, RR, SpO2: stable & adequate BP & HR: stable & adequate Hydration State: stable & adequate Anesthetic Complications: no major complications apparent
--- NOTE | 2016-11-20 15:59 | OPERATIVE REPORT ---
DATE OF OPERATION: 11/20/2016 PREOPERATIVE DIAGNOSES: Acute cholecystitis, cholelithiasis. POSTOPERATIVE DIAGNOSIS: Acute cholecystitis, gangrene gallbladder with gallstones. OPERATION: Laparoscopic cholecystectomy and BEATRIZ drainage x1. SURGEON: Dr. Richa Ortiz. ANESTHESIA: General. ESTIMATED BLOOD LOSS: About 30 mL. PRESS WORKER HELPER: Verna Jang PA-C. IV FLUIDS: 1600 mL. FINDINGS: Gangrene gallbladder, acute cholecystitis, cholelithiasis. COMPLICATIONS: None. INDICATIONS FOR THE PROCEDURE: This is a 66-year-old female who presented to the ED with right upper quadrant pain. The patient had ultrasound showed acute cholecystitis and cholelithiasis. The patient was admitted to hospital overnight and gave the patient IV antibiotic, comfort the pain. The patient feels better. The patient required total laparoscopic cholecystectomy, possible open, possible cholangiogram. I did talk to the patient about the benefit and risk alternate procedure. I indicated the risks may include but not limited such as bleeding, infection, injury to common bile duct, injury to bowel, myocardial infarction, stroke, DVT, even . May need ERCP. The patient understands. She signed informed consent and I answered all questions. OPERATION AND FINDINGS: DETAILS OF PROCEDURE: We brought the patient to the OR, put the patient in the supine position. The patient received SCD on bilateral legs to prevent DVT. Also, the patient received 2 grams Ancef IV for prophylactic antibiotic. The patient received general anesthesia without difficulty. The abdomen was prepped and draped in routine sterile fashion. After time out I injected local anesthesia by using 1% lidocaine mixed with 0.25% Marcaine just above the umbilical. Then I made a small incision just above umbilical, opened fascia, opened peritoneum under direct vision. I put a Theron trocar in connected to CO2 to create pneumoperitoneum. Flow rate is 6 liter per minute, pressure not more than 14 mmHg. Once we did a nice pneumoperitoneum, we put a 10 mm camera in to look around the abdomen shows no more findings on the stomach, small bowel, large bowel and the liver. However, the gallbladder showing significant gallbladder wall thickening, edema and inflammation, most likely gangrene gallbladder with gallstone. Then we put another three 5 mm trocars in on the right upper quadrant. Once all trocars in we put grasper in to hold the base of the gallbladder and then I used another grasper to hold the pouch over the gallbladder. However, based on the gallbladder significant inflammation, we decided to use puncture needle to puncture the gallbladder to decompress the gallbladder. Once we decompressed the gallbladder, we put another grasper in to hold the pouch over the gallbladder to put latter direction to expose the triangle of Calot. The cystic duct was identified and mobilized. Then I put two 5 mm metal clips on the proximal cystic duct, one on the distal cystic duct and then used scissor to transect the cystic duct. Then the cystic artery was identified and mobilized. Then I put two 5 mm metal clips on the proximal cystic artery, 1 on the distal cystic artery, then I used scissors transecting the cystic artery. Then we take down the gallbladder through the liver bed used Bovie without difficulty. Rechecked no active bleeding, no bile leak and then we removed the gallbladder through the catch bag. Then we reinserted Theron trocar in creating pneumoperitoneum again to look around the abdomen and there is no active bleeding, no bile leak. Based on the patient had significant inflammation gallbladder gangrene I decided to put one 7 mm BEATRIZ drainage in and then I used 2-0 silk to fix the BEATRIZ to the skin and then I removed all trocars under direct vision, no active bleeding. The pneumoperitoneum was released and closed the umbilical incision, fascial layer by using #1 Vicryl [id number] x2, closed subcutaneous layer by using 2-0 Vicryl, closed skin by using 4-0 Vicryl. All other three 5 mm trocar site closed skin by using 4-0 Vicryl. Then I put the dressing on. The patient tolerated the procedure well and after procedure, I did talk to the patient relative about the OR findings and procedure we did. The patient will stay overnight and the specimen sent to pathology. All the instrument, needle and sponge count correct x2 at the end of case. I attest to the content of the Intraoperative Record and any orders documented therein. Any exceptions are noted below. CARLOS
[2016-11-20] MEDS: HYDROmorphone INJ 1 MG/ML SYR IV PRN ×3 (16:06→23:02)
[2016-11-20] MEDS ORDERED: SODIUM CHLORIDE 0.65% NA SOLN 45 ML (OCEAN) ONE (20:28)
[2016-11-21] MEDS ORDERED: NURSING VERBAL MED ORDER ONE (02:15)
[2016-11-21] MEDS ORDERED: PANTOprazole SOD 40 MG TAB PO SCH (03:00)
[2016-11-21 03:32] VITALS: BP 112/70; PULSE 58; TEMP 36.9; O2SAT 95
[2016-11-21] MEDS: D5W AND 1/2NSS + 20MEQ KCL 1,000 ML IV SCH ×2 (05:08→14:29)
[2016-11-21] MEDS: PIPERACILL/TAZOBAC IV 3.375 GM in DEXTROSE 5% 100ML 100 ML IV SCH ×3 (05:35→21:44)
[2016-11-21 06:27] LABS: BASO % 0.1 %; BASO ABS # 0.01 K/uL (0-0.2); COMPLETE YES; EOS % 0.1 %; HEMATOCRIT 37.6 % (37-47); IG% 0.3 %; LYMPH % 9.7 %; MEAN CELL VOLUME 88.3 fL (80-100); MEAN PLATELET VOLUME 10.4 fL (7.4-10.4); MONO % 9.3 %; NEUT % 80.5 %; PLATELET COUNT 200 K/uL (130-400); RED BLOOD COUNT 4.26 M/uL (4.2-5.4); WHITE BLOOD COUNT 15.54 K/uL (4.8-10.8)
[2016-11-21 06:47] LABS: BUN/CREATININE RATIO 6.3 (10-20); CREATININE 0.57 mg/dl (0.60-1.20); POTASSIUM 3.8 mmol/L (3.5-5.1)
[2016-11-21 06:50] LABS: ALB/GLOB RATIO 0.8 (0.9-2)
[2016-11-21 06:51] VITALS: BP 137/72; PULSE 58; TEMP 36.7; O2SAT 93
--- NOTE | 2016-11-21 07:00 | SURGERY PROGRESS NOTE ---
DATE: 11/21/[address] Ortiz. Calderon is first postoperative day status post laparoscopic cholecystectomy. Her main complaint is reflux issue. She has had this for a long time. She states that she takes Zantac 150 mg a day at home twice a day and this seems to be under control. Last night we started her on some Protonix. Her last vitals showed a temperature of 36.9, pulse 58, respiration 15, blood pressure 112/70, O2 sats 95 on room air. The Matias drained 50 mL serosanguineous, nonbilious. LABORATORY STUDY: This morning her white count is 15.54, hemoglobin 12.8. She does have a significant left shift. Chemistries are pending. Her abdomen is softly distended but no localized tenderness. At this point, we will continue the patient here. She is not ready for discharge as Dr. Ortiz had anticipated. We will give her Zantac as her wishes rather than the Protonix. She is continued on antibiotics.
[2016-11-21] MEDS: RANITIDINE HCL 150 MG TAB PO SCH ×2 (08:18→17:12)
[2016-11-21] MEDS: METOPROLOL TARTRATE 25 MG TAB PO SCH ×2 (08:43→20:32)
[2016-11-21 14:55] VITALS: BP 136/69; PULSE 63; TEMP 37.2; O2SAT 94
[2016-11-21 20:30] VITALS: BP 163/97; PULSE 63; O2SAT 94
[2016-11-21 22:49] VITALS: BP 119/64; PULSE 62; TEMP 37.1; O2SAT 95
[2016-11-22] MEDS: PIPERACILL/TAZOBAC IV 3.375 GM in DEXTROSE 5% 100ML 100 ML IV SCH (06:06)
[2016-11-22 06:31] LABS: CREATININE 0.58 mg/dl (0.60-1.20)
[2016-11-22 07:05] VITALS: BP 143/73; PULSE 62; TEMP 37.1; O2SAT 95
[2016-11-22] MEDS: RANITIDINE HCL 150 MG TAB PO SCH (08:06)
[2016-11-22] MEDS: IBUPROFEN 600 MG TAB PO PRN (08:06)
[2016-11-22] MEDS ORDERED: TRAM-453 PO (08:09)
--- NOTE | 2016-11-22 08:11 | Discharge Instructions ---
Discharge Instructions Visit Reason for Visit: Acute Cholecystitis Discharge Discharge Diagnosis / Problem: s/p lap kandy Discharge Goals Goal(s): Decrease discomfort Activity Recommendations Lifting Limitations: no more than 10 pounds Driving or Machine Use: resume 3 days after discharge Anesthesia . Post Anesthesia Instructions: If you have had General Anesthesia or IV Sedation: * Do not drive today. * Resume driving when surgeon permits. * Do not make important decisions or sign legal documents today. * Call surgeon for: 1. Temperature elevations greater than 101 degrees F. 2. Uncontrollable pain. 3. Excessive bleeding. 4. Persistent nausea and vomiting. 5. Medication intolerance (nausea, vomiting or rash). * For nausea and vomiting use only clear liquids such as: tea, soda, bouillon until nausea subsides, then gradually increase diet as tolerated. * If you have any concerns or questions, call your surgeon's office. If physician is unavailable and it is an emergency, call 911 or go to the nearest emergency room. . Instructions / Follow-Up Instructions / Follow-Up call [phone] for any problems and f/u with DR Angel amezquita in 1 week Diet Recommendations Recommended Home Diet: resume previous diet Procedures Procedures Performed: Laparoscopic Cholecystectomy Medical Emergencies . Who to Call and When: Medical Emergencies: If at any time you feel your situation is an emergency, please call 911 immediately. . Non-Emergent Contact . . "Provider Documentation" section prepared by Abdiel Isbell.
--- NOTE | 2016-11-22 08:28 | SURGERY PROGRESS NOTE ---
DATE: 11/22/[address] Ortiz. Calderon feels fine. She is anxious to go home. Last vitals showed a temperature of 37.1, pulse 62, respirations 16, blood pressure 143/73. the Matias drain was 30 mL, serosanguineous, nonbilious, and it was removed. The abdomen is softer than yesterday. She is tolerating a diet and moving her bowels. At this point, instructions were given by Dr. Ortiz. I just added some tramadol to some pain medicine in case she needs it. She is instructed to follow up in the office this week. CARLOS
[2016-11-22] MEDS: METOPROLOL TARTRATE 25 MG TAB PO SCH (09:04)
[2016-11-22 10:27] VITALS: BP 143/73; PULSE 62; TEMP 37.1; O2SAT 95
== END 2016-11-22 10:41 | disposition home or self-care (01) | DRG 419 ==
LOC: ENRESERVDT → ENRESERVTM → EDBD 21:15 → C.EDB 21:16 → C.MSW 11-19 00:24
PROVIDERS: ADMIT Surgery; ATTEND Surgery
PROC: 0FT44ZZ Resection of Gallbladder, Percutaneous Endoscopic Approach (ICD-10-PCS; principal; 2016-11-20 11:30)
DX: K80.00 Calculus of gallbladder with acute cholecystitis without obstruction (principal); F17.210 Nicotine dependence, cigarettes, uncomplicated

== ENCOUNTER → 2016-12-10 | Outpatient (CLI) | payer OTHER ==
[~2016-12-10] MED LIST changes: +B-CO1CAP17 PO
== END | disposition home or self-care (01) ==
LOC: C.LABPVFM 13:39
PROVIDERS: ATTEND Nurse Practitioner
DX: R68.89 Other general symptoms and signs (principal); R53.83 Other fatigue; L65.9 Nonscarring hair loss, unspecified

== ENCOUNTER → 2017-07-08 | Outpatient (CLI) | payer OTHER ==
[2017-07-08 13:55] LABS: ALT/SGPT 30 U/L (12-78); AST/SGOT 21 U/L (15-37); BLOOD UREA NITROGEN 13 mg/dl (7-18); BUN/CREATININE RATIO 23.2 (10-20); CALCIUM 9.9 mg/dl (8.5-10.1); CARBON DIOXIDE 26 mmol/L (21-32); CHLORIDE 108 mmol/L (98-107); CREATININE 0.56 mg/dl (0.60-1.20); GLUCOSE 82 mg/dl (70-99); SODIUM 139 mmol/L (136-145)
[2017-07-08 14:06] LABS: ALB/GLOB RATIO 1.1 (0.9-2); ALKALINE PHOSPHATASE 74 U/L (45-117)
[2017-07-09 16:31] LABS: ALBUMIN 4.2 G/DL (3.8-4.8); GAMMA GLOBULIN 1.1 G/DL (0.8-1.7)
== END | disposition home or self-care (01) ==
LOC: C.LAB1850 11:50
PROVIDERS: ATTEND Internal Medicine Endocrinology, Diabetes & Metabolism
DX: M81.0 Age-related osteoporosis without current pathological fracture (principal)

== ENCOUNTER → 2017-07-29 | Day surgery (SDC) | payer OTHER ==
[~2017-07-29] VITALS: Ht 157.5 cm; Wt 76.0 kg
[~2017-07-29] MED LIST changes: +ZOLEDRONIC ACID INJ 5 MG in EMPTY BAG 0 ML IV SCH
[2017-07-29 12:08] VITALS: BP 118/68; PULSE 65; TEMP 36.5; O2SAT 96; Ht 157.5 cm; Wt 76.0 kg
== END | disposition home or self-care (01) ==
LOC: C.MTU 11:36
PROVIDERS: ATTEND Internal Medicine Endocrinology, Diabetes & Metabolism
DX: M81.0 Age-related osteoporosis without current pathological fracture (principal)

== ENCOUNTER → 2017-12-20 | Outpatient (CLI) | payer OTHER ==
[~2017-12-20] MED LIST changes: +RANI150T85 PO; -ZNTT/150 PO; -ZOLEDRONIC ACID INJ 5 MG in EMPTY BAG 0 ML IV SCH
--- NOTE | 2017-12-20 13:23 | DIAGNOSTIC IMAGING REPORT ---
R EXTREMITY NONVASCULAR LIMITED CLINICAL HISTORY: 67 years-old Female presenting with R22.9 Localized skin mass, lump, or swellingright upper backULTR. TECHNIQUE: Real-time grayscale and limited color Doppler ultrasound imaging of the right upper back was performed at the site of clinical interest. COMPARISON: None. FINDINGS: At the site of a palpable abnormality in the right upper back, a focal ovoid slightly hyperechogenic mass measures 2.8 x 3.7 x 0.9 cm. This is subjacent to the subcutaneous fat and superficial to the musculature. No posterior shadowing. No hyperemia. No associated fluid. IMPRESSION: Ovoid 3.7 cm mass at the site of clinical interest most likely represents a lipoma. Electronically signed by: Keith Brewer M.D. 12/20/2017 1:21 PM Dictated Date/Time: 12/20/2017 1:20 PM
== END | disposition home or self-care (01) ==
LOC: C.ULTR 12:56
PROVIDERS: ATTEND Nurse Practitioner Family
DX: R22.9 Localized swelling, mass and lump, unspecified (principal)

== ENCOUNTER → 2017-12-29 | Outpatient (CLI) | payer OTHER | END | disposition home or self-care (01) | LOC: C.LABPVFM 08:55 | PROVIDERS: ATTEND Nurse Practitioner | DX: R07.9 Chest pain, unspecified (principal); Z13.220 Encounter for screening for lipoid disorders ==

== ENCOUNTER → 2017-12-30 | Outpatient (CLI) | payer OTHER | END | disposition home or self-care (01) | LOC: C.MAMM 15:14 | PROVIDERS: ATTEND Internal Medicine Endocrinology, Diabetes & Metabolism | DX: M81.0 Age-related osteoporosis without current pathological fracture (principal) ==

== ENCOUNTER → 2017-12-30 | Outpatient (CLI) | payer OTHER ==
--- NOTE | 2017-12-31 13:54 | MAMMOGRAPHY REPORT ---
BILATERAL DIGITAL SCREENING MAMMOGRAM TOMOSYNTHESIS WITH CAD: 12/30/2017 CLINICAL HISTORY: Routine screening. Patient has no complaints. TECHNIQUE: Breast tomosynthesis in addition to standard 2D mammography was performed. Current study was also evaluated with a Computer Aided Detection (CAD) system. COMPARISON: Comparison is made to exams dated: 07/09/2016 mammogram, 06/03/2015 mammogram, 03/21/2014 ma mmogram, 03/20/2013 mammogram, 05/06/2011 mammogram, and 05/05/2010 mammogram - [facility]. BREAST COMPOSITION: There are scattered areas of fibroglandular density in both breasts. FINDINGS: No suspicious masses, calcifications, or areas of architectural distortion are noted in ei ther breast. There has been no significant interval change compared to prior exams. IMPRESSION: ACR BI-RADS CATEGORY 1: NEGATIVE There is no mammographic evidence of malignancy. A 1 year screening mammogram is recommended. The pa tient will receive written notification of the results. Approximately 10% of breast cancers are not detected with mammography. A negative mammographic report should not delay biopsy if a clinically suggestive mass is present. Erinn Álvarez M.D. ah/:12/30/2017 16:08:15 Registered Dental Assistant Rda: Thu CULP(Delia)([place]), [facility] letter sent: Normal 1/2 BI-RADS Code: ACR BI-RADS Category 1: Negative
== END | disposition home or self-care (01) ==
LOC: C.MAMM 15:46
PROVIDERS: ATTEND Internal Medicine Endocrinology, Diabetes & Metabolism
DX: Z12.31 Encounter for screening mammogram for malignant neoplasm of breast (principal)

== ENCOUNTER → 2018-02-02 | Outpatient (CLI) | payer OTHER ==
[2018-02-02 16:06] LABS: ALBUMIN 3.8 gm/dl (3.4-5.0); ALT/SGPT 36 U/L (12-78); AST/SGOT 24 U/L (15-37); BLOOD UREA NITROGEN 14 mg/dl (7-18); CALCIUM 10.1 mg/dl (8.5-10.1); CARBON DIOXIDE 26 mmol/L (21-32); CREATININE 0.59 mg/dl (0.60-1.20); GLUCOSE 78 mg/dl (70-99); POTASSIUM 3.9 mmol/L (3.5-5.1); SODIUM 137 mmol/L (136-145)
[2018-02-02 16:09] LABS: ALKALINE PHOSPHATASE 69 U/L (45-117); PHOSPHORUS 2.5 mg/dl (2.5-4.9); TOTAL PROTEIN 7.7 gm/dl (6.4-8.2)
== END | disposition home or self-care (01) ==
LOC: C.LAB1850 14:06
PROVIDERS: ATTEND Internal Medicine Endocrinology, Diabetes & Metabolism
DX: E55.9 Vitamin D deficiency, unspecified (principal); M81.0 Age-related osteoporosis without current pathological fracture

== ENCOUNTER → 2018-02-21 | Outpatient (CLI) | payer OTHER ==
--- NOTE | 2018-02-21 19:17 | DIAGNOSTIC IMAGING REPORT ---
PARATHYROID IMAGING CLINICAL HISTORY: E21.3 Hyperparathyroidism TECHNIQUE: SPECT images are acquired multi axially following the administration of 21.9 mCi technetium 99m Cardiolite. COMPARISON STUDY: None FINDINGS: Normal activity characteristics of the salivary glands. No abnormal parathyroid activity. No evidence for abnormal soft tissue activity characteristics. IMPRESSION: Normal study The above report was generated using voice recognition software. It may contain grammatical, syntax or spelling errors. Electronically signed by: Armin Segura M.D. 02/21/2018 7:15 PM Dictated Date/Time: 02/21/2018 7:13 PM
== END | disposition home or self-care (01) ==
LOC: C.NUCL 14:23
PROVIDERS: ATTEND Internal Medicine Endocrinology, Diabetes & Metabolism
DX: E21.3 Hyperparathyroidism, unspecified (principal)